=== PATIENT | male | born 1990 | race Caucasian/White ===

== ENCOUNTER 2018-01-01 00:50 | Emergency (ER) | payer OTHER ==
[2018-01-01 00:58] VITALS: BP 125/86; PULSE 79; RESP 16; TEMP 97.7
[2018-01-01] MEDS ORDERED: BUPIVACAINE (PF) 0.5% 30 ML VIAL SQ STA (01:25)
[2018-01-01] MEDS ORDERED: ACET/COD 300 MG/30 MG STARTER PACK 6 TAB BTL PO STA (01:34)
[2018-01-01] MEDS ORDERED: IBUPROFEN 600 MG STARTER PACK 4 TAB BTL PO STA (01:34)
--- NOTE | 2018-01-01 01:37 | ED ---
ENT HPI - General Chief complaint: Dental/Oral Stated complaint: Dental Pain Time Seen by Provider: 01/01/18 01:02 Source: patient Mode of arrival: ambulatory Limitations: no limitations - History of Present Illness Initial comments: 27-year-old male patient presents the emergency department today for evaluation of left lower dental pain. Patient states approximately 2 hours ago while at work eating lunch his tooth broke. Patient states he had immediate onset of severe sharp pain. Denies any swelling to the face. Denies any drainage from the area. He denies any fevers or chills. Denies any trismus or difficulty swallowing. Patient denies any recent rash, shortness breath, chest pain, abdominal pain, nausea, vomiting, diarrhea, constipation, back pain, numbness, tingling, dizziness, weakness, hematuria, dysuria, urinary urgency, urinary frequency, headache, visual changes, or any other complaints. - Related Data Previous Rx's Medication Instructions Recorded Ibuprofen [Motrin] 600 mg PO Q8HR PRN #30 tab 01/01/18 Allergies Allergy/AdvReac Type Severity Reaction Status Date / Time No Known Allergies Allergy Verified 01/01/18 00:58 Review of Systems ROS Statement: Those systems with pertinent positive or pertinent negative responses have been documented in the HPI. ROS Other: All systems not noted in ROS Statement are negative. Past Medical History Past Medical History: No Reported History History of Any Multi-Drug Resistant Organisms: None Reported Additional Past Surgical History / Comment(s): RIGHT HAND SURGERY, RIGHT ANKLE SKIN GRAFT Past Psychological History: No Psychological Hx Reported Smoking Status: Current every day smoker Past Alcohol Use History: None Reported Past Drug Use History: Marijuana General Exam Limitations: no limitations General appearance: alert, in no apparent distress, other (This is a well- developed, well-nourished adult male patient in no acute distress. Vital signs upon presentation are temperature 97.7F, pulse 79, respirations 16, blood pressure 125/86, pulse ox 98% on room air.) Eye exam: Present: normal appearance, PERRL, EOMI. Absent: scleral icterus, conjunctival injection, periorbital swelling ENT exam: Present: normal exam, mucous membranes moist, other (There is broken tooth #20. No surrounding erythema or gingival hyperplasia. No evidence of drainable abscess.) Neck exam: Present: normal inspection. Absent: tenderness, meningismus, lymphadenopathy Respiratory exam: Present: normal lung sounds bilaterally. Absent: respiratory distress, wheezes, rales, rhonchi, stridor Cardiovascular Exam: Present: regular rate, normal rhythm, normal heart sounds. Absent: systolic murmur, diastolic murmur, rubs, gallop, clicks GI/Abdominal exam: Present: soft, normal bowel sounds. Absent: distended, tenderness, guarding, rebound, rigid Neurological exam: Present: alert, oriented X3, CN II-XII intact Psychiatric exam: Present: normal affect, normal mood Skin exam: Present: warm, dry, intact, normal color. Absent: rash Course Vital Signs 01/01/18 00:56 Temperature 97.7 F Pulse Rate 79 Respiratory 16 Rate Blood Pressure 125/86 O2 Sat by Pulse 98 Oximetry Procedures - Nerve Block Consent Obtained: verbal consent Time Out Performed: Yes Local Anesthetic Used: Marcaine 0.5% Amount of anesthesia used: 3 Side: left Intraoral Nerve Block: inferior alveolar Procedure Successful: No Complications: none Patient Tolerated Procedure: well Medical Decision Making - Medical Decision Making 27-year-old male patient presented to the emergency department today for evaluation of left lower dental pain after tooth broke while eating lunch. Physical examination did reveal broken tooth #20. No surrounding erythema or gum swelling. No evidence of abscess. Patient is afebrile. Did perform intraoral nerve block, patient reported was not successful. He was given pain medication both starter packs and prescriptions. He is instructed to follow-up with the dentist as soon as possible. Return parameters discussed in detail. He verbalizes understanding and agrees with this plan. Disposition Clinical Impression: Fracture of tooth Disposition: HOME SELF-CARE Condition: Good Instructions: Dental Caries (ED), Toothache (ED) Additional Instructions: Take medications as directed. Follow-up with dentistry as soon as possible. Return here immediately for any new, worsening, or concerning symptoms. If you do not have dental insurance: Please follow up with the [facility] dental [facility]. [facility] [place] [address]. Phone number for new patients or for existing patients. [facility]. Must pay for x-rays then services are free. Call for an appoitnment. Prescriptions: Ibuprofen [Motrin] 600 mg PO Q8HR PRN #30 tab PRN Reason: Pain Is patient prescribed a controlled substance at d/c from ED?: No Referrals: None,Stated [Primary Care Provider] - 1-2 days Time of Disposition: 01:36
== END 2018-01-01 01:46 | disposition home or self-care (01) ==
LOC: EC 00:50
DX: S02.5XXA Fracture of tooth (traumatic), initial encounter for closed fracture (principal); F17.200 Nicotine dependence, unspecified, uncomplicated
CPT/HCPCS: 64400; 99282